=== PATIENT | female | born 1975 | race Caucasian/White ===

== ENCOUNTER 2025-02-18 12:13 | Emergency (ER) | payer MEDICARE, OTHER ==
[~2025-02-18] VITALS: Ht 152.4 cm; Wt 49.0 kg
[2025-02-18] MEDS ORDERED: CALCIUM + D3 E1 EACH PO (12:37)
[2025-02-18] MEDS ORDERED: DESITIN MULTI-P99 G1 TOP (12:39)
[2025-02-18] MEDS ORDERED: ARTHRITIS PAIN150 G1 TOP (12:40)
[2025-02-18] MEDS ORDERED: COLACE100 MG PO (12:40)
[2025-02-18] MEDS ORDERED: ADDAPRIN200 MG PO (12:41)
[2025-02-18] MEDS ORDERED: ALLERGY RELIEF10 M5 PO (12:42)
[2025-02-18] MEDS ORDERED: MUCINEX DM ER1 EACH PO (12:43)
[2025-02-18] MEDS ORDERED: REGULOID POWDE PO (12:44)
[2025-02-18] MEDS ORDERED: TYLENOL325 MG PO (12:44)
[2025-02-18] MEDS ORDERED: SODIUM CHLORIDE 0.9% 500 ML IV PRN ×2 (13:00→18:00)
[2025-02-18 13:03] LABS: BASOPHILS 0.7 % (0.1-1.2); EOSINOPHILS 1.7 % (0.7-5.8); LYMPHOCYTES 22.3 % (19.3-51.7); MCH 30.7 PG (25.6-32.2); MCHC 33.4 g/dL (32.2-35.5); MCV 91.8 fL (79.4-94.8); MONOCYTES 6.9 % (4.7-12.5); NEUTROPHILS 68.1 % (34.0-71.1); RBC 3.68 M/uL (3.93-5.22)
[2025-02-18] MEDS ORDERED: LORazepam 2 MG/ML VIAL IV ONE ×2 (13:15→16:15)
[2025-02-18 13:19] LABS: ALT (SGPT) 22.0 U/L (14-59); AST (SGOT) 13.0 U/L (15-37); GLOMERULAR FILTRATION RATE,EST 116.0 mL/min (>60); PROTEIN, TOTAL 7.3 g/dL (6.4-8.2); UREA NITROGEN 13.0 mg/dL (7-18)
[2025-02-18 13:54] LABS: BLOOD/HGB, URINE NEGATIVE (Negative); KETONE, URINE NEGATIVE (Negative); LEUK ESTERASE, URINE NEGATIVE (negative); NITRITE, URINE NEGATIVE (negative)
[2025-02-18] MEDS ORDERED: HYDROmorphone HCL 1 MG/ML SYR IV PRN (15:30)
[2025-02-18] MEDS ORDERED: CLINDAMYCIN PHOSPHATE/D5W 600 MG/50 ML PIGGYBACK IV ONE (18:00)
[2025-02-18] MEDS ORDERED: CLEOCIN HCL300 MG PO (18:39)
[2025-02-18] MEDS ORDERED: HYDROCODON-ACE1 EA10 PO (18:39)
[2025-02-18] MEDS ORDERED: HYDROCODONE BIT/ACETAMINOPHEN 5/325 MG 1 TAB HOME.PACK PO ONE (18:45)
[2025-02-18 19:38] VITALS: BP 92/66
== END 2025-02-18 19:52 | disposition home or self-care (01) ==
LOC: ED 12:13
PROVIDERS: Emergency Medicine
DX: R52 Pain, unspecified (principal); R50.9 Fever, unspecified; Z88.0 Allergy status to penicillin; Z79.899 Other long term (current) drug therapy
CPT/HCPCS: 36415; 70250; 70450; 70486; 71046; 74019; 74177; 80053; 81003; 85025; 96374; 96375; 99284-25; A9270; J1171; J2060; J7040; Q9967